=== PATIENT | female | born 1970 | race Caucasian/White ===

== ENCOUNTER 2022-06-02 08:47 | Emergency (ER) | payer OTHER ==
[~2022-06-02] VITALS: Ht 160 cm; Wt 104.3 kg
--- NOTE | 2022-06-02 08:50 | NUR ---
Pt BIBA [facility]. Pt c/o lower back pain that started last night abruptly no trauma. Pt states several years ago pt had a L3, L4, and L5 fracture. Denies any other symptoms. Rates pain 10/10 and is more painful on the right side. Pt is A&Ox4. VSS. Skin intact. Denies chest pain and no sob. No n/v. Bed is in lowest position.
[2022-06-02 08:54] VITALS: BP_SYST 152
--- NOTE | 2022-06-02 09:16 | NUR ---
REDDY Phillips at bedside examining patient.
[2022-06-02] MEDS ORDERED: IBUPROFEN 600 MG TABLET PO ONE ×2 (09:30)
[2022-06-02] MEDS ORDERED: DIAZEPAM 5 MG TABLET (VALIUM) PO ONE ×2 (09:30)
[2022-06-02] MEDS ORDERED: MORPHINE 4 MG INJ. 4 MG/ML VIAL IM ONE ×2 (09:30)
--- NOTE | 2022-06-02 09:37 | NUR ---
Patient transported to radiology via gurney, accompanied by radiology administrator.
--- NOTE | 2022-06-02 09:55 | NUR ---
Returned from radiology, back to [facility].
--- NOTE | 2022-06-02 11:27 | NUR ---
report rwecieved from Candace RN, pt in bed resting. pt continues to complaint of pain. MD [facility] notified. order recieved. will monitor as needed
[2022-06-02] MEDS ORDERED: MORPHINE 4 MG INJ. 4 MG/ML VIAL IVP ONE (11:30)
[2022-06-02] MEDS ORDERED: MORPHINE 4 MG INJ. 4 MG/ML VIAL ONE (11:34)
--- NOTE | 2022-06-02 11:42 | NUR ---
Spoke with Jacob rudolph [facility] for possible transfer pf pt. She stated she will call back once there is an accepting physician.
--- NOTE | 2022-06-02 12:04 | NUR ---
Jacob from [facility] called back and stated pt is accepted by Dr. Leos from [facility] to ER. They will call back with ETA and clinicals. Number for report is .
--- NOTE | 2022-06-02 13:08 | NUR ---
Transport called from [place] and [facility] is [address].
[2022-06-02] MEDS ORDERED: methylPREDNISolone SOD SUCC/PF 62.5 MG/ML VIAL IVP ONE (13:15)
--- NOTE | 2022-06-02 14:20 | NUR ---
REPORT PROVIDED TO CHERELLE ARROYO AT [place] [phone], PT TRANSPORT VIA [facility] ACCOMPANIED BY GIANNA. PT TRANSPORTED WITH ALL BELONGINGS IN STABLE CONDITION
[2022-06-02 14:21] VITALS: BP_SYST 127
== END 2022-06-02 14:24 | disposition short-term general hospital (02) ==
LOC: SED 08:47
DX: M54.50 Low back pain, unspecified (principal); G89.29 Other chronic pain; I10 Essential (primary) hypertension; Z79.899 Other long term (current) drug therapy
CPT/HCPCS: 99285; 96374; 72131; 96375; 76376; 81025; 96372; J2930; J2270